=== PATIENT | female | born 1945 | race Caucasian/White ===

== ENCOUNTER → 2019-10-13 | Outpatient (CLI) | payer MEDICARE, OTHER ==
[~2019-10-13] MED LIST: AMAN100C7 PO; ATEN50TA41 PO; CARB1TAB47 PO; FISH1CAP PO; HYDR12.517 PO; SERT100T PO; VIT1CAPS42 PO; Vitamin D PO
[2019-10-13 11:42] LABS: BASOPHILS # (AUTO) 0.03 x10^3/uL (0-0.1); BASOPHILS % (AUTO) 0 % (0-1); EOSINOPHILS # (AUTO) 0.34 x10^3/uL (0-0.4); EOSINOPHILS % (AUTO) 4 % (1-7); LYMPHOCYTES # (AUTO) 1.44 x10^3/uL (1-3.4); LYMPHOCYTES % (AUTO) 16 % (22-44); MD NO; MEAN CORPUSCULAR HEMOGLOBIN 29.1 pg (27.0-34.8); MEAN CORPUSCULAR HGB CONC 32.3 g/dL (32.4-35.8); MEAN CORPUSCULAR VOLUME 89.8 fL (80-100); MEAN PLATELET VOLUME 9.6 fL (7.4-10.4); MONOCYTES # (AUTO) 0.61 x10^3/uL (0.2-0.8); MONOCYTES % (AUTO) 7 % (2-9); NEUTROPHILS # (AUTO) 6.85 x10^3/uL (1.8-6.8); NEUTROPHILS % (AUTO) 74 % (42-75); PLATELET COUNT 187 x10^3/uL (130-400); RED BLOOD COUNT 5.71 x10^6/uL (3.82-5.3); RED CELL DISTRIBUTION WIDTH 14.1 % (9.6-15.2)
[2019-10-13 11:52] LABS: INTERNATIONAL NORMALIZED RATIO 0.99 (0.93-1.1); PROTHROMBIN TIME 10.2 Seconds (9.6-11.5)
[2019-10-13 11:54] LABS: ALANINE AMINOTRANSFERASE 15 U/L (12-78); ALBUMIN 3.8 g/dL (3.4-5.0); ANION GAP 6 mmol/L (5-15); CALCIUM 9.5 mg/dL (8.5-10.1); CHLORIDE 106 mmol/L (98-107)
[2019-10-13 11:56] LABS: ALKALINE PHOSPHATASE 122 U/L (45-117); BILIRUBIN,TOTAL 0.7 mg/dL (0.2-1.0); TOTAL PROTEIN 7.6 g/dL (6.4-8.2)
== END | disposition home or self-care (01) ==
LOC: STAR 10:03
PROVIDERS: ATTEND Neurological Surgery
DX: Z01.818 Encounter for other preprocedural examination (principal); G20 Parkinson's disease
CPT/HCPCS: 36415; 80053; 85025; 85610; 85730; 93005

== ENCOUNTER → 2019-10-16 | Day surgery (SDC) | payer MEDICARE, OTHER ==
[~2019-10-16] VITALS: Ht 152.4 cm; Wt 79.9 kg
[~2019-10-16] MED LIST changes: +ACETAMINOPHEN 325 MG TABLET PO PRN; +CHLORHEXIDINE 15 ML UDC MM ONE; +DEXAMETHASONE 4 MG/ML, 1ML ONE; +EPHEDRINE 50 MG/ML, 1ML IVPush PRN; +FENTANYL PF 100 MCG/2ML IV PRN; +GADOTERATE 10 MMOL/20 ML SYR ONE; +HYDROmorphone 1 MG/ML, 1ML INJ IVPush PRN; +LABETALOL 5MG/ML, 20ML IV PRN; +LACTATED RINGERS 1,000 ML IV SCH; +MEPERIDINE/PF 25MG/0.5ML IVPush PRN; +ONDANSETRON 2MG/ML, 2ML IVPush PRN; +ONDANSETRON 2MG/ML, 2ML ONE; +OXYcodone 5 MG/5 ML ORAL.SOL UDC PO PRN; +PROMETHAZINE 25 MG/ML, 1ML IVPush PRN; +PROPOFOL 10 MG/ML, 20ML ONE; +hydrALAzine 20 MG/ML, 1ML IV PRN
[2019-10-16 11:02] VITALS: BP 146/78
== END | disposition home or self-care (01) ==
LOC: OUT 10:05 → EDSTATUS 12:45
PROVIDERS: ATTEND Neurological Surgery
DX: G20 Parkinson's disease (principal); Z20.828 Contact with and (suspected) exposure to other viral communicable diseases; I10 Essential (primary) hypertension; G43.909 Migraine, unspecified, not intractable, without status migrainosus; Z79.899 Other long term (current) drug therapy; Z88.8 Allergy status to other drugs, medicaments and biological substances; Z82.61 Family history of arthritis; Z83.3 Family history of diabetes mellitus; Z82.49 Family history of ischemic heart disease and other diseases of the circulatory system; Z83.2 Family history of diseases of the blood and blood-forming organs and certain disorders involving the immune mechanism; Z82.3 Family history of stroke
CPT/HCPCS: 70553; 87635; A9575; J1100; J2405; J2704; J7120

== ENCOUNTER 2019-11-05 05:55 | Day surgery (SDC) | payer MEDICARE, OTHER ==
[~2019-11-05] VITALS: Ht 152.4 cm; Wt 79.1 kg
[~2019-11-05 05:55] MED LIST changes: -ACETAMINOPHEN 325 MG TABLET PO PRN; +CEPH-368 PO; -CHLORHEXIDINE 15 ML UDC MM ONE; -DEXAMETHASONE 4 MG/ML, 1ML ONE; -EPHEDRINE 50 MG/ML, 1ML IVPush PRN; -FENTANYL PF 100 MCG/2ML IV PRN; -GADOTERATE 10 MMOL/20 ML SYR ONE; -HYDROmorphone 1 MG/ML, 1ML INJ IVPush PRN; -LABETALOL 5MG/ML, 20ML IV PRN; -LACTATED RINGERS 1,000 ML IV SCH; -MEPERIDINE/PF 25MG/0.5ML IVPush PRN; -ONDANSETRON 2MG/ML, 2ML IVPush PRN; -ONDANSETRON 2MG/ML, 2ML ONE; -OXYcodone 5 MG/5 ML ORAL.SOL UDC PO PRN; -PROMETHAZINE 25 MG/ML, 1ML IVPush PRN; -PROPOFOL 10 MG/ML, 20ML ONE; -hydrALAzine 20 MG/ML, 1ML IV PRN
[2019-11-05] MEDS ORDERED: CHLORHEXIDINE 15 ML UDC MM STA (06:59)
[2019-11-05] MEDS ORDERED: LACTATED RINGERS 1,000 ML IV SCH (07:00)
[2019-11-05] MEDS ORDERED: THROMBIN 5,000 UNIT VIAL TP ONE (07:06)
[2019-11-05] MEDS ORDERED: BACITRACIN OINT 500U/GM, 15 GM ONE (07:06)
[2019-11-05] MEDS ORDERED: BACITRACIN 50,000 UNIT ONE (07:06)
[2019-11-05] MEDS ORDERED: BUPIVACAINE/PF 0.5% ONE (07:06)
[2019-11-05] MEDS ORDERED: CHLORHEXIDINE 15 ML UDC ONE (07:06)
[2019-11-05] MEDS ORDERED: EPINEPHRINE 1 MG/ML, 1ML ONE (07:06)
[2019-11-05] MEDS ORDERED: FENTANYL PF 250 MCG/5ML ONE (07:58)
[2019-11-05] MEDS ORDERED: ROCURONIUM 10MG/ML,5ML ONE (08:39)
[2019-11-05] MEDS ORDERED: CEFAZOLIN 1,000 MG ONE (08:39)
[2019-11-05] MEDS ORDERED: GLYCOPYRROLATE 0.2MG/1ML, 5ML ONE (08:39)
[2019-11-05] MEDS ORDERED: DEXAMETHASONE 4 MG/ML, 1ML ONE (08:39)
[2019-11-05] MEDS ORDERED: PROPOFOL 10 MG/ML, 20ML ONE (08:39)
[2019-11-05] MEDS ORDERED: NEOSTIGMINE 1 MG/ML, 10ML ONE (08:39)
[2019-11-05] MEDS ORDERED: ONDANSETRON 2MG/ML, 2ML ONE (08:39)
[2019-11-05] MEDS ORDERED: LIDOCAINE-MPF 2% ,5ML ONE (08:39)
[2019-11-05] MEDS ORDERED: MEPERIDINE/PF 25MG/0.5ML IVPush PRN (09:00)
[2019-11-05] MEDS ORDERED: LABETALOL 5MG/ML, 20ML IV PRN (09:00)
[2019-11-05] MEDS ORDERED: OXYcodone 5 MG/5 ML ORAL.SOL UDC PO PRN (09:00)
[2019-11-05] MEDS ORDERED: PROMETHAZINE 25 MG/ML, 1ML IVPush PRN (09:00)
[2019-11-05] MEDS ORDERED: ACETAMINOPHEN 325 MG TABLET PO PRN (09:00)
[2019-11-05] MEDS ORDERED: FENTANYL PF 100 MCG/2ML IV PRN (09:00)
[2019-11-05] MEDS ORDERED: HYDROmorphone 1 MG/ML, 1ML INJ IVPush PRN (09:00)
[2019-11-05] MEDS ORDERED: MIDAZOLAM 1 MG/ML, 2ML IV PRN (09:00)
[2019-11-05] MEDS ORDERED: hydrALAzine 20 MG/ML, 1ML IV PRN (09:00)
[2019-11-05] MEDS ORDERED: ALBUTEROL SULFATE 2.5 MG/3 ML NPPB PRN (09:00)
[2019-11-05] MEDS ORDERED: KETOROLAC 30 MG/1 ML ONE (11:30)
[2019-11-05] MEDS ORDERED: EPHEDRINE 50 MG/ML, 1ML ONE (11:30)
== END 2019-11-05 11:20 | disposition home or self-care (01) ==
LOC: OUT 05:55
PROVIDERS: ATTEND Neurological Surgery
DX: G20 Parkinson's disease (principal); Z20.828 Contact with and (suspected) exposure to other viral communicable diseases; I10 Essential (primary) hypertension; F32.9 Major depressive disorder, single episode, unspecified; G43.909 Migraine, unspecified, not intractable, without status migrainosus; R53.1 Weakness; B91 Sequelae of poliomyelitis; Z79.899 Other long term (current) drug therapy; Z86.73 Personal history of transient ischemic attack (TIA), and cerebral infarction without residual deficits; Z88.8 Allergy status to other drugs, medicaments and biological substances; Z82.61 Family history of arthritis; Z80.9 Family history of malignant neoplasm, unspecified; Z83.3 Family history of diabetes mellitus; Z82.3 Family history of stroke; Z82.49 Family history of ischemic heart disease and other diseases of the circulatory system; Z83.2 Family history of diseases of the blood and blood-forming organs and certain disorders involving the immune mechanism
CPT/HCPCS: 36415; 61886; 87635; C1767; C1883; J0171; J0690; J1100; J1885; J2405; J2704; J2710; J3010; J7120

== ENCOUNTER → 2019-11-27 | Outpatient (CLI) | payer MEDICARE, OTHER ==
[2019-11-27 16:13] LABS: MICROSCOPIC NOT IND
== END | disposition home or self-care (01) ==
LOC: LAB 12:22
PROVIDERS: ATTEND Psychiatry & Neurology Neurology
DX: N39.0 Urinary tract infection, site not specified (principal)
CPT/HCPCS: 81003

== ENCOUNTER 2020-05-20 19:24 | Emergency (ER) | payer MEDICARE, OTHER ==
[~2020-05-20] VITALS: Ht 154.9 cm; Wt 78.0 kg
[~2020-05-20 19:24] MED LIST changes: +ERTA1VIA IV
--- NOTE | 2020-05-20 19:49 | NUR ---
ASSUMED CARE OF PATIENT. PATIENT REPORTS SHE IS A PATIENT OF DR LOYD. PT HAS A HISTORY OF [facility] AND IS WORRIED SHE HAS A INFECTON AGAIN WHERE HER NEUROTRANSMITTER WAS REMOVED BECAUSE HER LEGS ARE FEELING WEAK AND SHE HAD THAT SAME SYMPTOM LAST TIME SHE HAD AN INFECTION. VS STABLE. CALL LIGHT I PLACE. WILL CONTINUE TO MONITOR.
[2020-05-20] MEDS ORDERED: SERTRALINE (19:55)
[2020-05-20] MEDS ORDERED: LOVA10TA PO (19:56)
[2020-05-20] MEDS ORDERED: SODIUM CHLORIDE FLUSH 10ML SYR IVF ONE (20:30)
[2020-05-20] MEDS ORDERED: SODIUM CHLORIDE 0.9% 1,000ML IVBOLUS ONE (20:30)
--- NOTE | 2020-05-20 20:48 | NUR ---
TECH IN ROOM DOING EKG. LABS DRAWN. VS STABLE. CALL LIGHT IN PLACE. WILL CONTINUE TO MONITOR.
[2020-05-20 20:58] LABS: BASOPHILS % (AUTO) 1 % (0-1); EOSINOPHILS % (AUTO) 3 % (1-7); LYMPHOCYTES % (AUTO) 22 % (22-44); MEAN CORPUSCULAR HEMOGLOBIN 28.9 pg (27.0-34.8); MEAN CORPUSCULAR HGB CONC 33.4 g/dL (32.4-35.8); MEAN PLATELET VOLUME 9.2 fL (7.4-10.4); MONOCYTES % (AUTO) 8 % (2-9); NEUTROPHILS % (AUTO) 66 % (42-75); PLATELET COUNT 217 x10^3/uL (130-400); RED BLOOD COUNT 5.32 x10^6/uL (3.82-5.3)
[2020-05-20 21:05] LABS: MD NO
[2020-05-20 21:10] LABS: ALANINE AMINOTRANSFERASE 19 U/L (12-78); ALBUMIN 3.7 g/dL (3.4-5.0); ANION GAP 5 mmol/L (5-15); CALCIUM 9.3 mg/dL (8.5-10.1); CHLORIDE 110 mmol/L (98-107); CREATININE 0.78 mg/dL (0.55-1.02)
[2020-05-20 21:12] LABS: ALKALINE PHOSPHATASE 116 U/L (45-117); BILIRUBIN,TOTAL 0.2 mg/dL (0.2-1.0); TOTAL PROTEIN 7.4 g/dL (6.4-8.2)
--- NOTE | 2020-05-20 21:20 | NUR ---
DR ISIDRO HAS UPDATED PATIENT
--- NOTE | 2020-05-20 21:45 | NUR ---
PT VISITING WITH DAUGHTER AT BEDSIDE. VS STABLE. NO ACUTE DISTRESS NOTED. WILL CONTINUE TO MONITOR.
--- NOTE | 2020-05-20 22:22 | NUR ---
PER DR ISIDRO NO UA NEEDED.
--- NOTE | 2020-05-20 22:25 | NUR ---
DR ISIDRO IN ROOM UPDATING PATIENT
[2020-05-20] MEDS ORDERED: LORazepam 2 MG/ML, 1ML ONE (22:30)
[2020-05-20] MEDS ORDERED: LORazepam 2 MG/ML, 1ML IVPush ONE (22:30)
--- NOTE | 2020-05-20 22:57 | NUR ---
PATIENT IN MRI
[2020-05-20] MEDS ORDERED: GADOTERATE 7.5 MMOL/15ML SYR ONE (23:20)
--- NOTE | 2020-05-20 23:26 | NUR ---
PT BACK FROM MRI. NO ACUTE DISTRESS NOTED. CALL LIGHT IN PLACE. WILL CONTINUE TO MONITOR.
[2020-05-21 00:23] VITALS: BP 152/76
--- NOTE | 2020-05-21 00:23 | NUR ---
PT RESTING IN ROOM. VS STABLE. NO ACUTE DISTRESS NOTED CALL LIGHT IN PLACE. WILL CONTINUE TO MONITOR.
--- NOTE | 2020-05-21 00:31 | NUR ---
DR ISIDRO IN ROOM UPDATING PATIENT
--- NOTE | 2020-05-21 01:10 | NUR ---
PER DR ISIDRO NO UA NEEDED. PT REPORTS SHE DOES NOT WANT TO STAY FOR ADMISSION, PT WANTS TO GO HOME. VS STABLE. PT HAS A RIDE HOME WITH HER DAUGHTER. PT TO FOLLOW UP WITH DR WHITE. PT DISCHARGED BY DR ISIDRO.
== END 2020-05-21 01:15 | disposition home or self-care (01) ==
LOC: ED 05-21 00:31
DX: R53.1 Weakness (principal); R11.2 Nausea with vomiting, unspecified; G04.01 Postinfectious acute disseminated encephalitis and encephalomyelitis (postinfectious ADEM)
CPT/HCPCS: 36415; 70553; 80053; 83605; 85025; 87040; 93005; 96374; 99285; A9575; J2060; J7030

== ENCOUNTER → 2020-06-22 | Outpatient (CLI) | payer MEDICARE, OTHER ==
[~2020-06-22] MED LIST changes: +ALBU6.7H8 INH; +HYDR25TA6 PO; +LOVA10TA PO; +OMEG12002 PO; +SERT100T32 PO; +SERTRALINE
[2020-06-22 11:37] LABS: BASOPHILS % (AUTO) 1 % (0-1); EOSINOPHILS % (AUTO) 3 % (1-7); LYMPHOCYTES % (AUTO) 19 % (22-44); MEAN CORPUSCULAR HEMOGLOBIN 29.3 pg (27.0-34.8); MEAN CORPUSCULAR HGB CONC 33.8 g/dL (32.4-35.8); MEAN PLATELET VOLUME 9.2 fL (7.4-10.4); MONOCYTES % (AUTO) 7 % (2-9); NEUTROPHILS % (AUTO) 70 % (42-75); PLATELET COUNT 194 x10^3/uL (130-400); RED CELL DISTRIBUTION WIDTH 14.6 % (9.6-15.2)
[2020-06-22 11:39] LABS: ALANINE AMINOTRANSFERASE 7 U/L (12-78); ALBUMIN 3.9 g/dL (3.4-5.0); CALCIUM 9.1 mg/dL (8.5-10.1); CREATININE 0.73 mg/dL (0.55-1.02); MD NO
[2020-06-22 11:40] LABS: ALKALINE PHOSPHATASE 113 U/L (45-117); BILIRUBIN,TOTAL 0.4 mg/dL (0.2-1.0); TOTAL PROTEIN 7.6 g/dL (6.4-8.2)
[2020-06-22 11:48] LABS: INTERNATIONAL NORMALIZED RATIO 0.96 (0.93-1.1); PROTHROMBIN TIME 10.3 Seconds (9.6-11.5)
[2020-06-22 11:50] LABS: ANION GAP 3 mmol/L (5-15); CHLORIDE 107 mmol/L (98-107)
== END | disposition home or self-care (01) ==
LOC: STAR 09:51
PROVIDERS: ATTEND Neurological Surgery
DX: Z01.818 Encounter for other preprocedural examination (principal); G20 Parkinson's disease
CPT/HCPCS: 36415; 80053; 85025; 85610; 85730; 93005

== ENCOUNTER 2020-06-28 08:18 | Day surgery (SDC) | payer MEDICARE, OTHER ==
[~2020-06-28] VITALS: Ht 152.4 cm; Wt 82.8 kg
[~2020-06-28 08:18] MED LIST changes: -FENTANYL PF 250 MCG/5ML ONE; -GADOTERATE 10 MMOL/20ML SYR ONE
[2020-06-28] MEDS ORDERED: LABETALOL 5MG/ML, 20ML IV PRN (09:00)
[2020-06-28] MEDS ORDERED: OXYcodone 5 MG/5 ML ORAL.SOL UDC PO PRN (09:00)
[2020-06-28] MEDS ORDERED: FENTANYL PF 100 MCG/2ML IV PRN (09:00)
[2020-06-28] MEDS ORDERED: METHOCARBAMOL 1,000 MG in DEXTROSE 5% 100 ML IV PRN (09:00)
[2020-06-28] MEDS ORDERED: PROMETHAZINE 25 MG/ML, 1ML IVPush PRN (09:00)
[2020-06-28] MEDS ORDERED: ACETAMINOPHEN 325 MG TABLET PO PRN (09:00)
[2020-06-28] MEDS ORDERED: ONDANSETRON 2MG/ML, 2ML IVPush PRN (09:00)
[2020-06-28] MEDS ORDERED: LORazepam 2 MG/ML, 1ML IVPush PRN (09:00)
[2020-06-28] MEDS ORDERED: LACTATED RINGERS 1,000 ML IV SCH (09:00)
[2020-06-28] MEDS ORDERED: HYDROmorphone 1 MG/ML, 1ML INJ IVPush PRN (09:00)
[2020-06-28] MEDS ORDERED: hydrALAzine 20 MG/ML, 1ML IV PRN (09:00)
[2020-06-28] MEDS ORDERED: EPHEDRINE 50 MG/ML, 1ML IVPush PRN (09:00)
[2020-06-28] MEDS ORDERED: CHLORHEXIDINE 15 ML UDC ONE (09:04)
[2020-06-28 09:07] VITALS: BP 171/88
[2020-06-28] MEDS ORDERED: CHLORHEXIDINE 15 ML UDC PO ONE (09:30)
[2020-06-28] MEDS ORDERED: PROPOFOL 10 MG/ML, 20ML ONE (10:09)
[2020-06-28] MEDS ORDERED: SUCCINYLCHOLINE 20 MG/ML, 10ML ONE (10:09)
[2020-06-28] MEDS ORDERED: ONDANSETRON 2MG/ML, 2ML ONE (10:09)
[2020-06-28] MEDS ORDERED: ROCURONIUM 10 MG/ML,10ML ONE (10:09)
[2020-06-28] MEDS ORDERED: DEXAMETHASONE 4 MG/ML, 1ML ONE (10:09)
[2020-06-28] MEDS ORDERED: GADOTERATE 10 MMOL/20ML SYR ONE (13:32)
== END 2020-06-28 13:00 | disposition home or self-care (01) ==
LOC: OUT 08:18
PROVIDERS: ATTEND Neurological Surgery
DX: G20 Parkinson's disease (principal); I10 Essential (primary) hypertension; G43.909 Migraine, unspecified, not intractable, without status migrainosus; Z20.822 Contact with and (suspected) exposure to COVID-19; Z79.899 Other long term (current) drug therapy; Z88.8 Allergy status to other drugs, medicaments and biological substances; Z82.61 Family history of arthritis; Z83.3 Family history of diabetes mellitus; Z82.49 Family history of ischemic heart disease and other diseases of the circulatory system
CPT/HCPCS: 70553; A9575; J0330; J1100; J2405; J2704; J7120; U0003; U0005

== ENCOUNTER → 2020-06-28 | Outpatient (CLI) | payer MEDICARE, OTHER ==
[~2020-06-28] MED LIST changes: +FENTANYL PF 250 MCG/5ML ONE; +GADOTERATE 10 MMOL/20ML SYR ONE
== END | disposition home or self-care (01) ==
LOC: RAD 07:47
PROVIDERS: ATTEND Neurological Surgery
DX: G20 Parkinson's disease (principal)
CPT/HCPCS: 70553; A9575; J3010

== ENCOUNTER → 2020-07-15 | Outpatient (CLI) | payer MEDICARE, OTHER ==
[~2020-07-15] MED LIST changes: +CEPH500T PO
== END | disposition home or self-care (01) ==
LOC: STAR 10:12
PROVIDERS: ATTEND Neurological Surgery
DX: Z20.822 Contact with and (suspected) exposure to COVID-19 (principal)
CPT/HCPCS: U0003; U0005

== ENCOUNTER 2020-07-21 10:53 | Day surgery (SDC) | payer MEDICARE, OTHER ==
[~2020-07-21] VITALS: Ht 152.4 cm; Wt 82.8 kg
[2020-07-21 11:08] VITALS: BP 176/83
[2020-07-21] MEDS ORDERED: LACTATED RINGERS 1,000 ML IV SCH (11:30)
[2020-07-21] MEDS ORDERED: CHLORHEXIDINE 15 ML UDC PO ONE (11:30)
[2020-07-21] MEDS ORDERED: ATENOLOL 50 MG TABLET PO ONE (12:00)
[2020-07-21] MEDS ORDERED: BUPIVACAINE/PF 0.5% ONE (12:47)
[2020-07-21] MEDS ORDERED: EPINEPHRINE 1 MG/ML, 1ML ONE (12:48)
[2020-07-21] MEDS ORDERED: BACITRACIN 50,000 UNIT ONE (12:48)
[2020-07-21] MEDS ORDERED: BACITRACIN OINT 500U/GM, 15 GM ONE (12:48)
[2020-07-21] MEDS ORDERED: FENTANYL PF 100 MCG/2ML ONE (12:50)
[2020-07-21] MEDS ORDERED: ONDANSETRON 2MG/ML, 2ML ONE (14:28)
[2020-07-21] MEDS ORDERED: GLYCOPYRROLATE 0.2MG/1ML, 5ML ONE (14:28)
[2020-07-21] MEDS ORDERED: SUCCINYLCHOLINE 20 MG/ML, 10ML ONE (14:28)
[2020-07-21] MEDS ORDERED: NEOSTIGMINE 1 MG/ML, 10ML ONE (14:28)
[2020-07-21] MEDS ORDERED: CEFAZOLIN 1,000 MG ONE (14:28)
[2020-07-21] MEDS ORDERED: ROCURONIUM 10MG/ML,5ML ONE (14:28)
[2020-07-21] MEDS ORDERED: DEXAMETHASONE 4 MG/ML, 1ML ONE (14:28)
[2020-07-21] MEDS ORDERED: PROPOFOL 10 MG/ML, 20ML ONE (14:28)
[2020-07-21] MEDS ORDERED: OXYcodone 5 MG/5 ML ORAL.SOL UDC ONE (14:54)
[2020-07-21] MEDS ORDERED: hydrALAzine 20 MG/ML, 1ML ONE (14:54)
[2020-07-21] MEDS ORDERED: ACETAMINOPHEN 650 MG/20.3 ML UDC ONE (14:54)
[2020-07-21] MEDS ORDERED: MEPERIDINE/PF 25MG/0.5ML IVPush PRN (15:00)
[2020-07-21] MEDS ORDERED: DIAZEPAM 5 MG/ML, 2ML IVPush PRN (15:00)
[2020-07-21] MEDS ORDERED: OXYcodone 5 MG/5 ML ORAL.SOL UDC PO PRN (15:00)
[2020-07-21] MEDS ORDERED: LABETALOL 5MG/ML, 20ML IV PRN (15:00)
[2020-07-21] MEDS ORDERED: KETOROLAC 30 MG/1 ML IV PRN (15:00)
[2020-07-21] MEDS ORDERED: hydrALAzine 20 MG/ML, 1ML IV PRN (15:00)
[2020-07-21] MEDS ORDERED: FENTANYL PF 100 MCG/2ML IV PRN (15:00)
[2020-07-21] MEDS ORDERED: PROMETHAZINE 25 MG/ML, 1ML IV PRN (15:00)
[2020-07-21] MEDS ORDERED: ACETAMINOPHEN 325 MG TABLET PO PRN (15:00)
[2020-07-21] MEDS ORDERED: HYDROmorphone 2 MG/ML, 1ML IVPush PRN (15:00)
[2020-07-21] MEDS ORDERED: ALBUTEROL SULFATE 2.5 MG/3 ML NPPB PRN (15:00)
== END 2020-07-21 17:00 | disposition home or self-care (01) ==
LOC: OUT 10:53 → UNDODISIN 17:00
PROVIDERS: ATTEND Neurological Surgery
DX: G20 Parkinson's disease (principal); I10 Essential (primary) hypertension; G43.909 Migraine, unspecified, not intractable, without status migrainosus; Z79.899 Other long term (current) drug therapy; Z86.73 Personal history of transient ischemic attack (TIA), and cerebral infarction without residual deficits; Z86.12 Personal history of poliomyelitis; Z88.8 Allergy status to other drugs, medicaments and biological substances; Z82.61 Family history of arthritis; Z83.3 Family history of diabetes mellitus; Z80.9 Family history of malignant neoplasm, unspecified
CPT/HCPCS: 61886; C1767; C1883; J0171; J0330; J0360; J0690; J1100; J2405; J2704; J2710; J3010; J7120